=== PATIENT | female | born 1970 | race Caucasian/White ===

== ENCOUNTER → 2016-11-24 20:27 | Outpatient (CLI) | payer BC ==
[2012-01-21 02:44] VITALS: BMI 30.3
[2016-11-24 21:11] LABS: T4 THYROXINE 7.3 ug/dL (4.7-13.3); THYROID STIMULATING HORMONE 1.39 uIU/mL (0.36-3.74)
== END | disposition home or self-care (01) ==
LOC: D.LABREF 20:27
PROVIDERS: Internal Medicine Cardiovascular Disease
DX: I10 Essential (primary) hypertension (principal); R00.2 Palpitations

== ENCOUNTER 2017-01-15 09:19 | Emergency (ER) | payer BC ==
[2012-01-21 02:44] VITALS: BMI 30.3
== END 2017-01-15 11:13 | disposition home or self-care (01) ==
LOC: D.ER 09:19
DX: S06.0X1A Concussion with loss of consciousness of 30 minutes or less, initial encounter (principal); W19.XXXA Unspecified fall, initial encounter; R42 Dizziness and giddiness; H57.13 Ocular pain, bilateral

== ENCOUNTER → 2017-06-10 08:06 | Outpatient (CLI) | payer BC ==
[2012-01-21 02:44] VITALS: BMI 30.3
== END | disposition home or self-care (01) ==
LOC: D.NM 08:06
DX: E04.1 Nontoxic single thyroid nodule (principal)

== ENCOUNTER → 2018-06-01 16:08 | Outpatient (CLI) | payer BC ==
[2012-01-21 02:44] VITALS: BMI 30.3
[2018-06-01 16:44] LABS: CHOL - HDL RATIO 8.2 ratio (2.3-4.1); LDL-HDL RATIO 4.6 ratio (1.5-3.5)
== END | disposition home or self-care (01) ==
LOC: D.LABREF 16:08
PROVIDERS: Internal Medicine Cardiovascular Disease
DX: E78.5 Hyperlipidemia, unspecified (principal)

== ENCOUNTER → 2018-11-08 09:57 | Outpatient (CLI) | payer OTHER ==
[2012-01-21 02:44] VITALS: BMI 30.3
== END | disposition home or self-care (01) ==
LOC: D.HCCARDIO 09:57
PROVIDERS: ATTEND Internal Medicine Cardiovascular Disease
DX: I10 Essential (primary) hypertension (principal)